=== PATIENT | female | born 1970 | race Caucasian/White ===

== ENCOUNTER → 2019-12-22 | Outpatient (CLI) | payer OTHER | END | disposition home or self-care (01) | LOC: CFH 14:01 | PROVIDERS: ATTEND Family Medicine | DX: Z12.31 Encounter for screening mammogram for malignant neoplasm of breast (principal) | CPT/HCPCS: 77063; 77067 ==

== ENCOUNTER 2021-03-14 06:03 | Day surgery (SDC) | payer OTHER ==
[2021-03-13 10:37] LABS: ALANINE AMINOTRANSFERASE 22 U/L (12-78); ALBUMIN 3.5 g/dL (3.4-5.0); ANION GAP 7 mmol/L (5-15); CALCIUM 9.5 mg/dL (8.5-10.1); CHLORIDE 104 mmol/L (98-107); CREATININE 0.62 mg/dL (0.55-1.02)
[2021-03-13 10:39] LABS: ALKALINE PHOSPHATASE 106 U/L (45-117); BILIRUBIN,TOTAL 0.5 mg/dL (0.2-1.0)
[~2021-03-14] VITALS: Ht 165.1 cm; Wt 141.3 kg
[~2021-03-14 06:03] MED LIST: CINN500C2 PO; DULA0.75 INJ; GINK120T3 PO; Iron PO; LOSA100T14 PO; MAGN400T9 PO; METF10007 PO; SPIR50TA4 PO; vitamin b12 PO
[2021-03-14] MEDS ORDERED: CHLORHEXIDINE 15 ML UDC PO ONE (07:00)
[2021-03-14] MEDS ORDERED: LACTATED RINGERS 1,000 ML IV SCH (07:00)
[2021-03-14] MEDS ORDERED: PROPOFOL 50 ML ONE (08:10)
[2021-03-14] MEDS ORDERED: MIDAZOLAM 1 MG/ML, 2ML IV PRN (09:00)
[2021-03-14] MEDS ORDERED: LABETALOL 5MG/ML, 20ML IV PRN (09:00)
[2021-03-14] MEDS ORDERED: hydrALAzine 20 MG/ML, 1ML IV PRN (09:00)
[2021-03-14] MEDS ORDERED: DIAZEPAM 5 MG/ML, 2ML IVPush PRN (09:00)
[2021-03-14] MEDS ORDERED: DIPHENHYDRAMINE 50 MG/ML, 1ML IVPush PRN ×2 (09:00)
[2021-03-14] MEDS ORDERED: ALBUTEROL SULFATE 2.5 MG/3 ML NPPB PRN (09:00)
[2021-03-14] MEDS ORDERED: EPHEDRINE 50 MG/ML, 1ML IVPush PRN (09:00)
[2021-03-14] MEDS ORDERED: MEPERIDINE/PF 25MG/0.5ML IVPush PRN (09:00)
[2021-03-14] MEDS ORDERED: HYDROmorphone 1 MG/ML, 1ML INJ IVPush PRN (09:00)
[2021-03-14] MEDS ORDERED: PROMETHAZINE 12.5 MG SUPP PR PRN (09:00)
[2021-03-14] MEDS ORDERED: FENTANYL PF 100 MCG/2ML IV PRN (09:00)
[2021-03-14] MEDS ORDERED: ONDANSETRON 2MG/ML, 2ML IVPush PRN (09:00)
[2021-03-14] MEDS ORDERED: ACETAMINOPHEN 325 MG TABLET PO PRN (09:00)
[2021-03-14] MEDS ORDERED: OXYcodone 5 MG/5 ML ORAL.SOL UDC PO PRN (09:00)
[2021-03-14] MEDS ORDERED: PROMETHAZINE 25 MG/ML, 1ML IVPush PRN (09:00)
== END 2021-03-14 09:57 | disposition home or self-care (01) ==
LOC: OUT 06:03
PROVIDERS: ATTEND Internal Medicine Gastroenterology
DX: Z12.11 Encounter for screening for malignant neoplasm of colon (principal); R10.12 Left upper quadrant pain; K64.4 Residual hemorrhoidal skin tags; K29.50 Unspecified chronic gastritis without bleeding; K31.9 Disease of stomach and duodenum, unspecified; E11.9 Type 2 diabetes mellitus without complications; G43.909 Migraine, unspecified, not intractable, without status migrainosus; G47.33 Obstructive sleep apnea (adult) (pediatric); Z20.822 Contact with and (suspected) exposure to COVID-19; Z79.84 Long term (current) use of oral hypoglycemic drugs; Z79.899 Other long term (current) drug therapy
CPT/HCPCS: 36415; 43239; 45380; 80053; 81025; 82962; 88305; 93005; J2704; U0003; U0005